=== PATIENT | male | born 1960 | race Caucasian/White ===

== ENCOUNTER 2024-05-13 09:45 | Day surgery (SDC) | payer OTHER, SELFPAY ==
[2024-05-13 10:43] LABS: Absolute Lymphocyte Count 1.62 X10^3/uL (0.83-4.51); Absolute Neutrophil Count 4.5 X10^3/uL (2.0-7.7); Basophil# 0.03 X10^3/uL; Basophil% 0.4 % (0-1); Eosinophil# 0.09 X10^3/uL; Eosinophils% 1.3 % (0-5); Hematocrit 43.7 % (40-54); Hemoglobin 14.7 g/dL (13.0-16.5); Lymphocyte # 1.62 X10^3/ul (0.83-4.51); Lymphocyte % 23.7 % (19-41); Mean Corp Hgb Conc 33.6 g/dL (32-36); Mean Corpuscular Hgb 33.5 pg (27.0-32.0); Mean Corpuscular Volume 99.5 fL (80-94); Mean Platelet Vol. 9.6 fl (6.2-12.0); Monocyte# 0.52 X10^3/uL; Monocyte% 7.6 % (0-10); NRBC Flagged by Analyzer 0 % (0-5); Neutrophil # 4.54 X10^3/uL (2.7-7.7); Neutrophil % 66.6 % (47-70); Platelet Count 224 K/mm3 (150-450); RBC Distribution Width CV 12.8 % (11.6-14.6); RBC Distribution Width SD 47.2 fl (35.1-43.9); Red Blood Count 4.39 M/mm3 (4.6-6.2); White Blood Count 6.8 K/mm3 (4.4-11.0)
[2024-05-13 11:06] LABS: Magnesium 2.2 mg/dL (1.6-2.6)
[2024-05-13 11:08] LABS: Anion Gap 5 (5-15); BUN 15 mg/dL (7-18); BUN/Creat Ratio 16.4 RATIO (10-20); Chloride 102 mmol/L (98-107); Creatinine, Serum 0.91 mg/dL (0.70-1.30); EST Glomerular Filtration Rate 89 mL/min (>60); Est Glom Filt Rate - Afr Amer 108 mL/min (>60); Glucose 101 mg/dL (74-106); Potassium 4.4 mmol/L (3.5-5.1); Sodium Level 133 mmol/L (136-145)
[2024-05-13 11:13] LABS: Cholesterol 257 mg/dL (200); High Density Lipoprotein 62 mg/dL; PSA,Total - Annual Screen 1.53 ng/mL (0.00-4.00); Triglycerides 89 mg/dL; Very Low Density Lipoprotein 18 mg/dL (5-40)
[2024-05-13 11:47] LABS: HIV - WCH Non-Reactive (Nonreactive); Hepatitis B Surface Antibody Non-Reactive; Hepatitis C Antibody Non-Reactive (Nonreactive)
--- NOTE | 2024-05-13 15:13 | PAT.ANE_ITS ---
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 When Was Last Pacemaker Check QUESTION #4 FULL TEXT: You/Your Family Experience fever (hyperthermia) with Anesthesia Last Oral Intake Last Oral intake: Last Oral Intake NPO since Meds taken in AM with sips of water? Meds patient instructed to take am of surgery PONV PONV - secondary school teacher librarian: PONV - secondary school teacher librarian Female No 05/12/24 08:31 HX of Motion Sickness Yes 05/12/24 08:31 HX of N/V After Surgery No 05/12/24 08:31 Non-Smoker No 05/12/24 08:31 Duration of Surgery greater Yes 05/12/24 08:31 than 60 minutes Number of Risk Factors 2 05/12/24 08:31 PONV Score Moderate Risk 05/12/24 08:31 Height & Weight Height & Weight: Anesthesia: Height & Weight Height 5 ft 10 in 03/18/24 08:37 Respiratory Assessment Respiratory Assessment - secondary school teacher librarian: Respiratory Tract Infection Hx - secondary school teacher librarian Hx Respiratory Tract Infection No 05/12/24 08:31 STOP Sleep Apnea STOP Sleep Apnea - secondary school teacher librarian: STOP Sleep Apnea - secondary school teacher librarian Hx Hypertension Yes: NO MEDS PRESENTLY, 05/12/24 08:31 GOING TO PCP 05/12/24 Hx Sleep Apnea No 05/12/24 08:31 CPAP BIPAP Do you snore loudly (louder No 05/12/24 08:31 than talking or can be heard Do you often feel tired/ No 05/12/24 08:31 fatigued/ sleepy during daytime? Has anyone observed you stop No 05/12/24 08:31 breathing during sleep? STOP Results Negative 05/12/24 08:31 QUESTION #5 FULL TEXT : Do you snore loudly (louder than talking or can be heard through closed doors)? 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 Specify any problems Hx of Preganancy in last 3 N/A 05/12/24 08:31 Months Nurse Filling Out Transfusion VCHRISTIN 05/12/24 08:31 & Questions: Date: 05/12/24 05/12/24 08:31 Time: 08:33 05/12/24 08:31 Patient unable to answer at this time (ie. confused, unrespo /Reproduction History /Reproductive History - secondary school teacher librarian: /Reproductive Hx- secondary school teacher librarian Hx Now Gestational Age (in weeks): EDC: Hx Hx Para Hx Section SAB PFSH Medical History (Updated 05/12/24 @ 08:31 by Corrine Stapleton) Wears glasses Anxiety Alcohol use History of steroid therapy Kidney stones History of IBS Smoker History of echocardiogram History of stress test Cardiology follow-up encounter Arthritis Hypertension Home Medications ?Medication ?Instructions ?Recorded ?Last Taken ?Type acetaminophen 325 mg tablet 650 mg PO Q6H PRN pain 03/18/24 Unknown History ascorbic acid (vitamin C) 500 mg 500 mg PO QDAY SUPPLEMENT 03/18/24 Unknown History tablet multivitamin 1 tab PO .TWICE WEEKLY SUPPLEMENT 03/18/24 Unknown History omega 0-lnp-oie-fish oil 1,200 mg 1 cap PO DAILY SUPPLEMENT 05/12/24 Unknown History (144 mg-216 mg) capsule (Fish Oil) zinc gluconate 50 mg tablet 50 mg PO DAILY SUPPLEMENT 05/12/24 Unknown History Allergy/AdvReac Type Severity Reaction Status Date / Time No Known Allergies Allergy Verified 05/12/24 08:20 Family History (Updated 03/18/24 @ 08:25 by Elida Lennon) Other Cancer Hypertension Surgical History (Updated 05/12/24 @ 08:31 by Corrine Stapleton) History of cardiac catheterization Hx of lymph node excision History of coronary artery stent placement Social History (Updated 03/18/24 @ 08:26 by Elida Lennon) household members: spouse Smoking Status: Current every day smoker tobacco type: cigarettes alcohol intake: current alcohol intake frequency: 3 or more drinks per day substance use type: does not use do you feel safe at home: Yes Audit: Pertinent Findings Pertinent Findings EKG Perinent findings: September 04, 2021 sinus rhythm slight left precordial repolarization disturbance can set her left ventricular overload orders specific change Stress test pertinent findings: General 03/17/2021 negative normal size function left ventricle Echo (EF%) pertinent findings: Ejection fraction 55 to 60% Heart catheterization pertinent findings: RCA stent Consult pertinent findings: Cardiology Gil 06/03/2022 coronaryi artery disease PCI in RCA stent stable Recommendation Anesthesia Recommendation Anesthesia recommendation: OPTIMIZED for anesthesia
[2024-05-14 05:07] LABS: Hepatitis A AB, Total Positive (Negative)
== END 2024-05-20 10:30 | disposition home or self-care (01) ==
PROVIDERS: Anesthesiology; PCP Nurse Practitioner Primary Care; Referring Provider Orthopaedic Surgery Orthopaedic Surgery of the Spine; Visit Provider Orthopaedic Surgery Orthopaedic Surgery of the Spine
DX: Z01.818 Encounter for other preprocedural examination (principal); Z01.810 Encounter for preprocedural cardiovascular examination; I10 Essential (primary) hypertension; F17.210 Nicotine dependence, cigarettes, uncomplicated; Z95.5 Presence of coronary angioplasty implant and graft; Z53.9 Procedure and treatment not carried out, unspecified reason
CPT/HCPCS: 36415; 80048; 80061; 83735; 84153; 85025; 86703; 86706; 86708; 86803; 86850; 86900; 86901; 87081; 93005; G0103

== ENCOUNTER → 2024-05-13 | Outpatient (CLI) | payer OTHER, SELFPAY | END | disposition home or self-care (01) | LOC: LAB 10:00 | PROVIDERS: PCP Nurse Practitioner Primary Care; Referring Provider Nurse Practitioner Primary Care; Visit Provider Nurse Practitioner Primary Care | DX: Z12.5 Encounter for screening for malignant neoplasm of prostate (principal); Z13.6 Encounter for screening for cardiovascular disorders ==